=== PATIENT | male | born 1960 | race Caucasian/White ===

== ENCOUNTER → 2019-10-30 | Outpatient (CLI) | payer BC ==
--- NOTE | 2019-10-30 13:06 | REP ---
PARANASAL SINUS SERIES: FOUR VIEWS. HISTORY: Acute maxillary sinusitis. FINDINGS: The maxillary and frontal sinuses are clear. Ethmoid and sphenoid aeration is normal. Mastoid aeration appears normal. Bony sinus margins and orbital margins are intact. Bony nasal septum is in the midline. Nasopharynx and hypopharynx are unremarkable. The lateral view suggests tonsillar crypt calcifications. No other abnormality. IMPRESSION: No radiographic evidence of sinusitis. Electronically Signed by Kerwin Carcamo MD 10/30/2019 01:45 P
== END ==
LOC: M LRY 12:03
PROVIDERS: ATTEND Nurse Practitioner Adult Health
DX: Z87.09 Personal history of other diseases of the respiratory system (principal); K08.89 Other specified disorders of teeth and supporting structures